=== PATIENT | male | born 1975 | race Caucasian/White ===

== ENCOUNTER → 2017-05-17 14:50 | Outpatient (CLI) | payer OTHER, SELFPAY ==
--- NOTE | 2017-05-17 14:52 | RAD_ITS ---
STUDY: X-RAY - RIGHT SHOULDER REASON FOR EXAM: Male, 41 years old. Right shoulder pain for 3 weeks. No known injury. TECHNIQUE: 3 view(s) of the shoulder. COMPARISON: None. FINDINGS: Normal glenohumeral articulation. There is mild arthrosis of the acromioclavicular joint. Normal acromion. Normal humeral head and visualized proximal humerus. The soft tissue structures are unremarkable. Normal visualized pulmonary apex. RAD/Shoulder min 2 Views IMPRESSION: Mild arthrosis of the acromioclavicular joint. Electronically Signed: Erik Cabral MD at 16:08 EST , Service support ,
== END ==
PROVIDERS: Visit Provider Orthopaedic Surgery
DX: M25.511 Pain in right shoulder (principal)
CPT/HCPCS: 73030

== ENCOUNTER 2021-06-08 08:32 | Emergency (ER) | payer OTHER, SELFPAY ==
[2021-06-08 08:33] VITALS: BP 136/98; PULSE 74; RESP 14; TEMP 36.6; O2SAT 99; BMI 33.1
--- NOTE | 2021-06-08 09:14 | EDS_ITS ---
HPI History of Present Illness Chief Complaint: Constipation Narrative Narrative: Patient presents with abdominal pain for about 6 days, he thought it was his diverticulitis and finally yesterday he started Augmentin, however he also noticed that he has not had a bowel movement for about 4 days. No fever or chills. He does not have current rectal pain or urinary symptoms or testicular pain. He has no flank pain. He has not had any nausea or vomiting. He does have chronic recurrent diverticulitis history PFSH PFS Medical History Diverticulitis Psoriasis Home Medications amoxicillin-pot clavulanate 1 tab PO BID 06/08/21 [History Last Taken Unknown] metoprolol succinate 25 mg PO DAILY 06/08/21 [History Last Taken Unknown] polyethylene glycol 3350 [Miralax] 17 g PO BID #119 g 06/08/21 [Rx Last Taken Unknown] rosuvastatin 10 mg PO DAILY 06/08/21 [History Last Taken Unknown] Allergy/AdvReac Type Severity Reaction Status Date / Time No Known Allergies Allergy Verified 06/08/21 08:35 Social History Smoking Status: Never smoker ROS ROS ED ROS Narrative Past medical history: Reviewed, includes hypertension, hypercholesterolemia, history of diverticulitis Medications: Reviewed Social history: Noncontributory Review of systems: All systems negative except as indicated General: No fever Eyes: No visual changes ENT: No upper airway congestion, normal voice Neck: No neck pain Cardiovascular: No chest pain Respiratory: No shortness of breath or cough Gastrointestinal: As in HPI Genitourinary: No dysuria Musculoskeletal: Denies myalgias no difficulty with ambulation Skin: No rash Neurological: No memory loss, confusion or any focal weakness Psych: No recent behavioral changes Hematologic: No easy bleeding or easy bruising EXAM Physical Exam Narrative Exam Narrative: Physical exam General: Well nourished, Well developed, No Acute Distress. He appears relatively comfortable. Head: Normocephalic, Atraumatic Eyes: Conjunctiva not pale ENT: Moist mucous membranes Neck: Supple, Nontender, No lymphadenopathy Cardiovascular: Regular rate, Regular rhythm Respiratory: No distress, CTA bilaterally Abdomen: Soft, there is tenderness throughout the abdomen however most of the tenderness is in the left lower quadrant. There is no guarding or rebound. No CVA tenderness. Back: Nontender, Normal Inspection. Negative for: CVA tenderness Extremities: Nontender, No edema Skin: Normal color, No rash Neurological: Alert, Normal Strength, Normal Sensation Psychological: Normal affect Const Vital Signs: 06/08/21 08:33 Temperature 97.8 F Temperature Source Temporal Pulse Rate 74 Respiratory Rate 14 Blood Pressure 136/98 H Blood Pressure Mean 110 Pulse Ox 99 Oxygen Delivery Method Room Air MDM MDM MDM Narrative Medical decision making narrative: Patient is found to have acute diverticulitis, it is uncomplicated with a normal white count. I will start the patient on IV antibiotics in the ED and discharged home with oral antibiotics, he does have a prescription for oral antibiotics which she started yesterday. He is to continue those this is reasonable. He also has some constipation which I will treat. Otherwise I believe he can be safely discharged if he has fever or chills he is to return Lab Data Labs: Laboratory Results - last 24 hr 06/08/21 06/08/21 09:20 09:20 WBC 8.2 RBC 5.50 Hgb 15.7 Hct 47.1 MCV 85.6 MCH 28.5 MCHC 33.3 RDW Std Deviation 40.9 RDW Coeff of Eleonora 12.9 Plt Count 243 MPV 10.8 Immature Gran % (Auto) 0.200 Neut % (Auto) 71.1 H Lymph % (Auto) 17.4 L [place] % (Auto) 8.0 Eos % (Auto) 2.8 Baso % (Auto) 0.5 Absolute Neuts (auto) 5.8 Absolute Lymphs (auto) 1.42 Nucleated RBC % 0 Sodium 138 Potassium 3.8 Chloride 104 Carbon Dioxide 31.0 Anion Gap 3 L BUN 10 Creatinine 1.05 Estim Creat Clear Calc 84.81 Est GFR (MDRD) Af Amer 99 Est GFR (MDRD) Non-Af 82 BUN/Creatinine Ratio 9.5 L Glucose 101 Calcium 9.5 Total Bilirubin 0.70 AST 22 ALT 47 Alkaline Phosphatase 68 Total Protein 7.7 Albumin 3.3 Globulin 4.4 H Albumin/Globulin Ratio 0.8 L Lipase 78 Radiography Diagnostic Testing: Clinical Impression(s) from Imaging Studies Abdomen/Pelvis CT 06/08/21 09:50 IMPRESSION: Acute sigmoid diverticulitis without evidence of abscess or perforation. Individualized dose optimization techniques were used for this CT. at 1016 Reported and signed by: Rex Rangel MD Electronically Signed: Rex Rangel MD at 10:15 EDT , Discharge Plan Triage Chief Complaint: Constipation Other Complaint: Abd Pain ED Provider: Branden Campos Dx/Rx/DC Orders Clinical Impression: Diverticulitis, Constipation Instructions: ED Diverticulitis Prescriptions: New polyethylene glycol 3350 [Miralax] 17 gram/dose powder 17 g PO BID Qty: 119 RF: 0 No Action metoprolol succinate 25 mg tablet extended release 24 hr 25 mg PO DAILY RF: 0 rosuvastatin 10 mg tablet 10 mg PO DAILY RF: 0 amoxicillin-pot clavulanate 875-125 mg tablet 1 tab PO BID RF: 0 Primary Care Provider: Yenni Crockett Referrals: Yenni Crockett PA-C [Primary Care Provider] - 2 Days Disposition Disposition: Home, Self Care
[2021-06-08 09:31] LABS: Absolute Lymphocyte Count 1.42 X10^3/uL (0.83-4.51); Absolute Neutrophil Count 5.8 X10^3/uL (2.0-7.7); Basophil# 0.04 X10^3/uL; Basophil% 0.5 % (0-1); Eosinophil# 0.23 X10^3/uL; Eosinophils% 2.8 % (0-5); Hematocrit 47.1 % (40-54); Hemoglobin 15.7 g/dL (13.0-16.5); Lymphocyte # 1.42 X10^3/ul (0.83-4.51); Lymphocyte % 17.4 % (19-41); Mean Corp Hgb Conc 33.3 g/dL (32-36); Mean Corpuscular Hgb 28.5 pg (27.0-32.0); Mean Corpuscular Volume 85.6 fL (80-94); Mean Platelet Vol. 10.8 fl (6.2-12.0); Monocyte# 0.65 X10^3/uL; NRBC Flagged by Analyzer 0 % (0-5); Neutrophil # 5.79 X10^3/uL (2.7-7.7); Neutrophil % 71.1 % (47-70); Platelet Count 243 K/mm3 (150-450); RBC Distribution Width CV 12.9 % (11.6-14.6); RBC Distribution Width SD 40.9 fl (35.1-43.9); White Blood Count 8.2 K/mm3 (4.4-11.0)
[2021-06-08 09:47] LABS: ALB/GLOB Ratio 0.8 RATIO (0.9-2.4); AST(SGOT) 22 U/L (15-37); Alanine Aminotransfer ALT/SGPT 47 U/L (16-61); Albumin, Serum 3.3 g/dL (3.2-5.0); Alkaline Phosphatase 68 U/L (45-117); Anion Gap 3 (5-15); BUN 10 mg/dL (7-18); BUN/Creat Ratio 9.5 RATIO (10-20); Calcium,Total 9.5 mg/dL (8.5-10.1); Chloride 104 mmol/L (98-107); Creatinine, Serum 1.05 mg/dL (0.70-1.30); EST Glomerular Filtration Rate 82 mL/min (>60); Est Glom Filt Rate - Afr Amer 99 mL/min (>60); Estimated Creatinine Clearance 84.81 ml/min; Globulin 4.4 g/dL (2.2-4.2); Glucose 101 mg/dL (74-106); Lipase 78 U/L (73-393); Potassium 3.8 mmol/L (3.5-5.1); Protein, Total 7.7 g/dL (6.4-8.2); Sodium Level 138 mmol/L (136-145)
--- NOTE | 2021-06-08 09:50 | CT_ITS ---
EXAM: CT ABDOMEN AND PELVIS WITHOUT INTRAVENOUS CONTRAST : 1975 CLINICAL INDICATION: abdominal pain TECHNIQUE: Helically acquired images were obtained of the abdomen and pelvis without intravenous contrast. This CT exam was performed using one or more of the following dose reduction techniques: automated exposure control, adjustment of the mA and/or kV according to patient size, and/or use of iterative reconstruction technique. This report was created using [employer] report generation technology. COMPARISON: None. FINDINGS: LOWER THORAX: Unremarkable. Lung bases are clear. No cardiomegaly. No significant pericardial effusion. ABDOMEN: LIVER: Unremarkable. Homogeneous. GALLBLADDER AND BILE DUCTS: Unremarkable. No calcified gallstones. No gallbladder distention or wall edema. No intra- or extrahepatic biliary ductal dilation. PANCREAS: Unremarkable. No focal cystic mass. SPLEEN: Unremarkable. Normal size without focal cystic or solid mass. ADRENALS: Unremarkable. No nodules. KIDNEYS AND URETERS: Unremarkable. Normal renal size and position. No hydronephrosis. STOMACH AND BOWEL: Localized wall thickening of the sigmoid colon noted associated with adjacent mesenteric edema consistent with acute sigmoid diverticulitis. No evidence of abscess or perforation. No stomach or bowel distention. PELVIS: APPENDIX: Appendix is visualised and normal in appearance. BLADDER: Unremarkable. REPRODUCTIVE: Unremarkable as visualized. No mass. ABDOMEN and PELVIS: INTRAPERITONEAL SPACE: Unremarkable. No ascites or other fluid collection. No free air. BONES/JOINTS: Unremarkable. No suspicious lytic or blastic abnormality. SOFT TISSUES: Unremarkable. No discrete abdominal or pelvic wall hernia. VASCULATURE: Unremarkable. Abdominal aorta is non-dilated. LYMPH NODES: Unremarkable. No enlarged lymph nodes. CT/Abdomen/Pelvis without Cont IMPRESSION: Acute sigmoid diverticulitis without evidence of abscess or perforation. Individualized dose optimization techniques were used for this CT. at 1016 Reported and signed by: Rex Rangel MD Electronically Signed: Rex Rangel MD at 10:15 EDT ,
[2021-06-08] MEDS: Ciprofloxacin 400 MG/200 ML BAG 200 MG IV (10:41)
[2021-06-08] MEDS: metroNIDAZOLE 500 MG/100 ML BAG 100 MG IV (12:07)
== END 2021-06-08 13:09 | disposition home or self-care (01) ==
PROVIDERS: Emergency Provider Emergency Medicine; PCP Family Medicine; Visit Provider Emergency Medicine
DX: K57.32 Diverticulitis of large intestine without perforation or abscess without bleeding (principal); E78.00 Pure hypercholesterolemia, unspecified; I10 Essential (primary) hypertension; L40.9 Psoriasis, unspecified; Z79.899 Other long term (current) drug therapy; Z87.19 Personal history of other diseases of the digestive system
CPT/HCPCS: 74176; 80053; 83690; 85025; 96365; 96366; 96367; 99283; J7050; A4216; J0744

== ENCOUNTER → 2021-08-16 | Outpatient (CLI) | payer OTHER, SELFPAY ==
[2021-08-16 17:13] LABS: Absolute Lymphocyte Count 1.95 X10^3/uL (0.83-4.51); Absolute Neutrophil Count 3.4 X10^3/uL (2.0-7.7); Basophil# 0.05 X10^3/uL; Basophil% 0.8 % (0-1); Eosinophil# 0.37 X10^3/uL; Eosinophils% 5.9 % (0-5); Hematocrit 48.2 % (40-54); Hemoglobin 15.5 g/dL (13.0-16.5); Lymphocyte # 1.95 X10^3/ul (0.83-4.51); Lymphocyte % 31.2 % (19-41); Mean Corp Hgb Conc 32.2 g/dL (32-36); Mean Corpuscular Hgb 27.9 pg (27.0-32.0); Mean Corpuscular Volume 86.8 fL (80-94); Mean Platelet Vol. 10.8 fl (6.2-12.0); Monocyte# 0.45 X10^3/uL; Monocyte% 7.2 % (0-10); NRBC Flagged by Analyzer 0 % (0-5); Neutrophil # 3.42 X10^3/uL (2.7-7.7); Neutrophil % 54.6 % (47-70); Platelet Count 247 K/mm3 (150-450); RBC Distribution Width SD 45.1 fl (35.1-43.9); Red Blood Count 5.55 M/mm3 (4.6-6.2); White Blood Count 6.3 K/mm3 (4.4-11.0)
[2021-08-16 17:17] LABS: POSITIVE COUNT NO; POSITIVE DIFFERENTIAL NO; POSITIVE MORPHOLOGY NO
[2021-08-16 17:22] LABS: Erythrocyte Sedimentation Rate 11 mm/hr (0-20)
[2021-08-16 20:30] LABS: AST(SGOT) 16 U/L (15-37); Alanine Aminotransfer ALT/SGPT 30 U/L (16-61); Albumin, Serum 3.9 g/dL (3.2-5.0); Alkaline Phosphatase 53 U/L (45-117); Anion Gap 7 (5-15); BUN 11 mg/dL (7-18); CRP < 2.90 mg/L (0.0-3.0); Chloride 103 mmol/L (98-107); EST Glomerular Filtration Rate 86 mL/min (>60); Est Glom Filt Rate - Afr Amer 104 mL/min (>60); Globulin 4.1 g/dL (2.2-4.2); Glucose 94 mg/dL (74-106); Potassium 3.2 mmol/L (3.5-5.1); Sodium Level 138 mmol/L (136-145)
[2021-08-18 14:11] LABS: Anti-Centromere B Ab <0.2 AI (0.0-0.9); Anti-Chromatin <0.2 AI (0.0-0.9); Anti-Jo <0.2 AI (0.0-0.9); Anti-Scleroderma-70 AB <0.2 AI (0.0-0.9); RNP Ab <0.2 AI (0.0-0.9); SJOGREN'S Anti-SS-A test < 0.2 AI (0.0-0.9); SJOGREN'S Anti-SS-B test < 0.2 AI (0.0-0.9); Smith Ab <0.2 AI (0.0-0.9)
[2021-08-18 15:19] LABS: Anti-dsDNA Ab 1 IU/mL (0-9)
[2021-08-18 17:07] LABS: Endomysial Antibody IgA Negative (Negative)
[2021-08-18 18:21] LABS: Immunoglobulin A 323 mg/dL (90-386); t-Transglutaminase IgA <2 U/mL (0-3)
== END | disposition home or self-care (01) ==
LOC: LAB 17:00
PROVIDERS: PCP Family Medicine; Referring Provider Nurse Practitioner Adult Health; Visit Provider Nurse Practitioner Adult Health
DX: K57.90 Diverticulosis of intestine, part unspecified, without perforation or abscess without bleeding (principal)
CPT/HCPCS: 36415; 80053; 82784; 83516; 85025; 85652; 86140; 86225; 86235; 86255

== ENCOUNTER → 2021-08-18 | Outpatient (CLI) | payer OTHER, SELFPAY ==
[2021-08-22 16:47] LABS: Calprotectin, Stool 34 ug/g (0-120)
== END | disposition home or self-care (01) ==
LOC: LABSPEC 08:16
PROVIDERS: PCP Family Medicine; Visit Provider Nurse Practitioner Adult Health
DX: K57.90 Diverticulosis of intestine, part unspecified, without perforation or abscess without bleeding (principal); K58.9 Irritable bowel syndrome, unspecified
CPT/HCPCS: 83630; 83993

== ENCOUNTER 2021-11-15 12:30 | Day surgery (SDC) | payer OTHER, SELFPAY ==
[2021-11-15] MEDS: Lactated Ringers 1,000 ML 15 ML IV (12:45)
[2021-11-15 12:54] VITALS: BP 104/74; PULSE 52; RESP 16; TEMP 36.1; O2SAT 99; BMI 32.2
--- NOTE | 2021-11-15 13:45 | EGD_PTH ---
PATIENT: KWAKU JACOBSEN LOC: EN U#:[id number] AGE/SX: 46/M ROOM: RE11/15/[address]: Dr. Germán Resendiz DO : 1975 BED: DIS: 11/15/2021 SPEC #: [id number] RECD: 11/15/21 16:49 STATUS: ARIK AKIRA #: [id number] BARBARA: 11/15/21 13:[address]: Germán Resendiz DEPT: SURGICAL PATHOLOGY RECD BY: Judith Farley ENTERED: 11/16/21 11:13 SP TYPE: EGD BIOPSY OT DR: Yenni Crockett PA-C Tissues: A - Gastric mucous membrane B - Esophagus, NOS C - Ileum, NOS D - Sigmoid colon biopsy Procedures: Special Stain Group II Surgery Specimen Level IV Alcian Blue/PAS (control) HEADER OPERATION: Colonoscopy, [place] [place] PRE-OP DIAGNOSIS: Diverticular disease TISSUE SUBMITTED: A ? Gastric body biopsy, B ? Distal esophagus biopsy, C ? Terminal ileum biopsy, D ? Sigmoid colon biopsy MICROSCOPIC DIAGNOSIS A. Gastric body, biopsy: Mild gastritis. See microscopic description and comment. B. Distal esophagus, biopsy: Fragments of gastroesophageal mucosa with chronic inflammation. Intestinal metaplasia (goblet cell metaplasia) not identified. See comment. C. Terminal ileum, biopsy: Fragments of small intestinal mucosa, no pathologic diagnosis. D. Sigmoid colon, biopsy: Focal acute colitis. See comment. SJ:kay 11/17/2021 COMMENT A. The results of immunohistochemistry for Helicobacter pylori will be reported separately ([id number]). B. Alcian blue/PAS stain with matched control is used in the evaluation of the specimen. D. Significant inflammation or glandular distortion is not seen. Correlation with clinical, endoscopic findings and appropriate follow up are necessary. MICROSCOPIC DESCRIPTION Slides are reviewed. A. The specimen shows fragments of gastric mucosa with chronic inflammatory cell infiltrates in the lamina propria consisting of lymphocytes and plasma cells, consistent with mild chronic gastritis. GROSS DESCRIPTION A - Received in fixative is one container labeled with the patient's name and designated gastric body biopsy. The specimen consists of two irregular fragments of light davila soft tissue that in aggregate measure 0.8 x 0.6 x 0.1 cm. The specimen is totally submitted in one cassette. B - Received in fixative is one container labeled with the patient's name and designated terminal ileum biopsy. The specimen consists of multiple irregular fragments of light davila soft tissue that in aggregate measure 1 x 0.5 x 0.1 cm. The specimen is totally submitted in one cassette. C - Received in fixative is one container labeled with the patient's name and designated terminal ileum. The specimen consists of multiple irregular fragments of light davila soft tissue that in aggregate measure 0.6 x 0.6 x 0.1 cm. The specimen is totally submitted in one cassette. D - Received in fixative is one container labeled with the patient's name and designated distal esophagus. The specimen consists of multiple irregular fragments of light davila soft tissue that in aggregate measure 0.8 x 0.3 x 0.1 cm. The specimen is totally submitted in one cassette. / AM:kay 11/16/2021 TC:2 CPT: 54917 x4, 19198
--- NOTE | 2021-11-15 13:45 | IMM_PTH ---
PATIENT: KWAKU JACOBSEN LOC: EN U#:[id number] AGE/SX: 46/M ROOM: RE11/15/[address]: Dr. Germán Resendiz DO : 1975 BED: DIS: 11/15/2021 SPEC #: [id number] RECD: 11/16/21 12:30 STATUS: ARIK REMerrill #: [id number] BARBARA: 11/15/21 13:[address]: Germán Resendiz DEPT: IMMUNOHISTOCHEMISTRY RECD BY: Nellie Porras ENTERED: 11/16/21 12:31 SP TYPE: IMMUNO OT DR: Yenni Crockett PA-C Tissues: A - Stomach, NOS Procedures: H Pylori (initial) PHYSICIAN & INSTITUTION [place] [id number] SPECIMEN INFORMATION: Tissue Source: A ? Gastric body biopsy Clinical Info: Diverticular disease Specimen Number: [id number] CPT code: 69699 METHODOLOGY: Deparaffinized sections of prefer/formalin-fixed tissue or PAP/DQ stained slides are incubated with monoclonal/polyclonal antibodies/oligonucleotide probes. Localization is made via biotin free immunoperoxidase method. Appropriate controls are performed and reacted as expected. Results on target cell population are indicated in the following table: RESULTS: ANTIBODY / CLONE RESULT Block A H Pylori (polyclonal) negative These tests were developed and their performance characteristics determined by [facility]. They may not have been cleared or approved by the U.S. Food and Drug Administration. The FDA has determined that such clearance or approval is not necessary. The above immunohistochemical/dualISH markers are ordered and reviewed by the Pathologist. INTERPRETATION: A. Gastric body, biopsy: Negative for Helicobacter pylori organisms. SJ:kay 11/17/2021
--- NOTE | 2021-11-15 13:58 | PCM.HP.BLA ---
History and Physical Date of Admission: 11/15/21 KWAKU JACOBSEN, is a 46 M who presents to the office today for diverticular disease.? He is accompanied by his .? He was first diagnosed with diverticular disease approximately 10 years ago.? He had up to 3 bouts of diverticulitis annually until he started taking a daily probiotic.? When he backs off on taking the daily probiotic that is when he tends to get a flare of diverticulitis.? Most recent bout was in May of this year, that was the only time he has presented to the ED for diverticulitis.? He was treated with IV antibiotic and then discharged on Augmentin.? He was constipated at that time which is very unusual for him.? He normally has regular daily bowel movements, can sometimes have loose stools, really never constipated other than once this year. History of a hemorrhoid that has bled.? He has never had melena.? Has psoriasis plaque at anus, that can itch and bleed, so can be difficult to tell if psoriasis or hemorrhoid. Has rx for suppository for hemorrhoids. Frequent gas pains since childhood. With flare of diverticulitis pain is at the LLQ then across lower abdomen.? He does often have a mild discomfort in the left lower quadrant especially with palpation.Father had significant diverticular disease, including fistula to bladder. Occas heartburn, takes omeprazole prn.? No prior upper endoscopy. 06/08/21 CT Localized wall thickening of the sigmoid colon noted associated with adjacent mesenteric edema consistent with acute sigmoid diverticulitis. No evidence of abscess or perforation. No stomach or bowel distention. Past medical history includes palpitations for which she previously took metoprolol, psoriasis, hemorrhoid, diverticulitis, hyperlipidemia, obesity. 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[employer]) Constitutional: No fatigue ENT ENT: No difficulty swallowing Gastro GI: Positive for abdominal pain and nausea/dyspepsia; No belching, bloating, change in bowel habits, change in stool character, coffee ground emesis, constipation, cramping, diarrhea, heartburn, difficulty swallowing, feeling full early, excessive flatus, incontinent of stools, Vomiting blood/hematemesis, Blood in stool, loose stools, Black,tarry stools, pain with swallowing, vomiting or other Musc Musculoskeletal: Positive for back pain and stiffness; No joint pain Skin Skin: Positive for itchy eyes; No yellowing of the eye Psych Psychiatric: No anxiety and No depression Endo Endocrine: No fatigue Aller/Imm Allergy/Immunologic: Positive for itchy eyes Marcin/Lymp Hematologic/Lymphatic: No easy bleeding or easy bruising Exam Const General: cooperative, comfortable, well developed and well groomed Nutritional Appearance: overweight Eyes General: appearance normal, both eyes and all related structures Neck Neck: normal visual inspection Resp Effort & Inspection: normal respiratory effort GI Inspection: normal to inspection Palpation: soft, no hepatosplenomegaly, no masses and tender in the LLQ Skin General: no jaundice Neuro Gait: normal gait Quality Reporting Tobacco Screening ([facility] 138) Smoking Status: Never smoker Assessment and Plan Assessment and Plan (1) Diverticular disease: ?Status:?Acute ? ? ? Orders:?Orders: ? Comprehensive Metabolic Profil Today ? ? ? CRP Today ? ? ? CBC W/Diff, Automated Today ? ? ? Erythrocyte Sed Rate Today ? ? ? MARISABEL Comprehensive Panel Today ? ? ? Calprotectin, Stool Today ? ? ? Stool Lactoferrin/WBC Today ? ? ? Celiac Disease Profile Today ?Plan - Dania Ochoa NP, BILL RECAPITULATION CLERK-C: 46-year-old male with 10-year history of diverticular disease.? His father had fistulizing diverticular disease.? Will work-up patient to rule out IBD with inflammatory markers, stool inflammatory markers, and evaluate for other autoimmune disorder.? We will get him scheduled for both upper and lower endoscopy, need to rule out Sun's considering his history of heartburn.? We will give him an article on [facility].? Continue daily probiotic since that has proved to be very effective for him.? He does not have constipation so we do not need to address that.? Follow-up 2 weeks after endoscopy.? In the meantime I will contact him with results and any further work-up or treatment needed. Plan Details Other Medications: ?Discontinued: ? metoprolol succinate ER ?? Discontinued Reason:? Pt no longer taking 25 mg? PO DAILY ? ? ? amoxicillin-pot clavulanate 875-125 mg ?? Discontinued Reason:? Pt no longer taking 1 TAB? PO BID ? ? ? polyethylene glycol 3350 (Miralax) ?? Discontinued Reason:? Pt no longer taking 17 grams? PO BID 119 grams 0RF ? ? I have re-examined the patient. There are no clinical changes since date of exam.
--- NOTE | 2021-11-15 14:39 | OP.EGD_ITS ---
Patient Name: Chadwick Kyle Procedure Date: 11/15/2021 1:56 PM Date of : 1975 Age: 46 Procedure: Upper GI endoscopy Indications: Epigastric abdominal pain, Abdominal pain in the left lower quadrant Providers: Germán Resendiz DO Medicines: Monitored Anesthesia Care Patient Profile: This is a 46 year old male. Refer to note in patient chart for documentation of history and physical. Patient has symptoms of acute abdominal distention and chronic left lower quadrant abdominal pain. Complications: No immediate complications. Procedure: Pre-Anesthesia Assessment: - Prior to the procedure, a History and Physical was performed, and patient medications and allergies were reviewed. The risks and benefits of the procedure and the sedation options and risks were discussed with the patient. All questions were answered and informed consent was obtained. Patient identification and proposed procedure were verified by the physician in the pre-procedure area. Mental Status Examination: alert and oriented. Airway Examination: normal oropharyngeal airway and neck mobility. Respiratory Examination: clear to auscultation. CV Examination: normal. Prophylactic Antibiotics: The patient does not require prophylactic antibiotics. Prior Anticoagulants: The patient has taken no previous anticoagulant or antiplatelet agents. After reviewing the risks and benefits, the patient was deemed in satisfactory condition to undergo the procedure. The anesthesia plan was to use moderate sedation / analgesia (conscious sedation). Immediately prior to administration of medications, the patient was re-assessed for adequacy to receive sedatives. The heart rate, respiratory rate, oxygen saturations, blood pressure, adequacy of pulmonary ventilation, and response to care were monitored throughout the procedure. The physical status of the patient was re-assessed after the procedure. After obtaining informed consent, the endoscope was passed under direct vision. Throughout the procedure, the patient's blood pressure, pulse, and oxygen saturations were monitored continuously. The pediatric colonoscope was introduced through the mouth, and advanced to the second part of duodenum. The upper GI endoscopy was accomplished without difficulty. The patient tolerated the procedure well. Scope In: 2:09:32 PM Scope Out: 2:16:01 PM Total Procedure Duration Time 0 hours 6 minutes 29 seconds Findings: The Z-line was irregular and was found 38 cm from the incisors. Biopsies were taken with a cold forceps for histology. Verification of patient identification for the specimen was done. Estimated blood loss was minimal. The entire examined stomach was normal. Biopsies were taken with a cold forceps for histology. Verification of patient identification for the specimen was done. Estimated blood loss was minimal. The second portion of the duodenum was normal. Biopsies were taken with a cold forceps for histology. Verification of patient identification for the specimen was done. Estimated blood loss was minimal. Impression: - Z-line irregular, 38 cm from the incisors. Biopsied. - Normal stomach. Biopsied. - Normal second portion of the duodenum. Biopsied. Recommendation: - Discharge patient to home. - Resume previous diet. - Continue present medications. - Await pathology results. Procedure Code(s): --- Professional --- 22355, Esophagogastroduodenoscopy, flexible, transoral; with biopsy, single or multiple CPT copyright 2017 [employer]. All rights reserved. The codes documented in this report are preliminary and upon certified professional coder review may be revised to meet current compliance requirements. Germán Resendiz DO 11/15/2021 2:38:27 PM This report has been signed electronically. Number of Addenda: 1 Note Initiated On: 11/15/2021 1:56 PM Addendum Number: 1 Addendum Date: 12/29/2021 6:06:50 AM MAC was used as sedation for this procedure. Germán Resendiz DO 12/29/2021 6:06:53 AM This report has been signed electronically.
--- NOTE | 2021-11-15 14:39 | OP.CCLET_ITS ---
12/29/2021 [facility] Re : Upper GI endoscopy procedure for Chadwick Crockett This procedure was performed on Monday, November 15, 2021. My impressions and recommendations are as follows: Impressions : - Z-line irregular, 38 cm from the incisors. Biopsied. - Normal stomach. Biopsied. - Normal second portion of the duodenum. Biopsied. Recommendations : - Discharge patient to home. - Resume previous diet. - Continue present medications. - Await pathology results. My findings are described in the full procedure note, which is enclosed. If I can be of further assistance, please feel free to contact me at . Sincerely, Germán Resendiz, 11/15/2021 2:38:27 PM This report has been signed electronically.
[2021-11-15 14:40] VITALS: BP 104/74; BP 99/72; PULSE 61; RESP 16; TEMP 36.1; O2SAT 97
--- NOTE | 2021-11-15 14:42 | OP.CCLET_ITS ---
12/29/2021 [facility] Re : Colonoscopy procedure for Chadwick Crockett This procedure was performed on Monday, November 15, 2021. My impressions and recommendations are as follows: Impressions : - Localized mild inflammation was found in the sigmoid colon secondary to colitis. Biopsied. - Diverticulosis in the recto-sigmoid colon and in the sigmoid colon. - The examined portion of the ileum was normal. Biopsied. Recommendations : - Discharge patient to home. - Resume previous diet. - Continue present medications. - Await pathology results. - Repeat colonoscopy in 5 years. My findings are described in the full procedure note, which is enclosed. If I can be of further assistance, please feel free to contact me at . Sincerely, Germán Resendiz, 11/15/2021 2:41:23 PM This report has been signed electronically.
--- NOTE | 2021-11-15 14:42 | OP.COLON_ITS ---
Patient Name: Chadwick Kyle Procedure Date: 11/15/2021 2:16 PM Date of : 1975 Age: 46 Procedure: Colonoscopy Indications: Abdominal pain in the left lower quadrant, Abnormal CT of the GI tract Providers: Germán Resendiz DO Medicines: Monitored Anesthesia Care Patient Profile: This is a 46 year old male. Refer to note in patient chart for documentation of history and physical. Patient has symptoms of acute abdominal distention and chronic left lower quadrant abdominal pain. Last Colonoscopy: none. The patient's first colonoscopy is today. Complications: No immediate complications. Procedure: Pre-Anesthesia Assessment: - Prior to the procedure, a History and Physical was performed, and patient medications and allergies were reviewed. The risks and benefits of the procedure and the sedation options and risks were discussed with the patient. All questions were answered and informed consent was obtained. Patient identification and proposed procedure were verified by the physician in the pre-procedure area. Mental Status Examination: alert and oriented. Airway Examination: normal oropharyngeal airway and neck mobility. Respiratory Examination: clear to auscultation. CV Examination: normal. Prophylactic Antibiotics: The patient does not require prophylactic antibiotics. Prior Anticoagulants: The patient has taken no previous anticoagulant or antiplatelet agents. After reviewing the risks and benefits, the patient was deemed in satisfactory condition to undergo the procedure. The anesthesia plan was to use moderate sedation / analgesia (conscious sedation). Immediately prior to administration of medications, the patient was re-assessed for adequacy to receive sedatives. The heart rate, respiratory rate, oxygen saturations, blood pressure, adequacy of pulmonary ventilation, and response to care were monitored throughout the procedure. The physical status of the patient was re-assessed after the procedure. After I obtained informed consent, the scope was passed under direct vision. Throughout the procedure, the patient's blood pressure, pulse, and oxygen saturations were monitored continuously. The pediatric colonoscope was introduced through the anus and advanced to the terminal ileum. The colonoscopy was performed without difficulty. The patient tolerated the procedure well. The quality of the bowel preparation was good. Scope In: 2:18:23 PM Scope Withdrawal Time 0 hours 11 minutes 37 seconds Scope Out: 2:34:09 PM Total Procedure Duration Time 0 hours 15 minutes 46 seconds Findings: The perianal and digital rectal examinations were normal. Localized mild inflammation characterized by congestion (edema) and erythema was found in the sigmoid colon. Biopsies were taken with a cold forceps for histology. Verification of patient identification for the specimen was done. Estimated blood loss was minimal. A few small and large-mouthed diverticula were found in the recto-sigmoid colon and sigmoid colon. The terminal ileum appeared normal. Biopsies were taken with a cold forceps for histology. Verification of patient identification for the specimen was done. Estimated blood loss was minimal. Impression: - Localized mild inflammation was found in the sigmoid colon secondary to colitis. Biopsied. - Diverticulosis in the recto-sigmoid colon and in the sigmoid colon. - The examined portion of the ileum was normal. Biopsied. Recommendation: - Discharge patient to home. - Resume previous diet. - Continue present medications. - Await pathology results. - Repeat colonoscopy in 5 years. Procedure Code(s): --- Professional --- 85216, Colonoscopy, flexible; with biopsy, single or multiple CPT copyright 2017 [employer]. All rights reserved. The codes documented in this report are preliminary and upon inpatient coder review may be revised to meet current compliance requirements. Germán Resendiz DO 11/15/2021 2:41:23 PM This report has been signed electronically. Number of Addenda: 1 Note Initiated On: 11/15/2021 2:16 PM Addendum Number: 1 Addendum Date: 12/29/2021 6:07:02 AM MAC was used as sedation for this procedure. Germán Resendiz DO 12/29/2021 6:07:05 AM This report has been signed electronically.
[2021-11-15 14:45] VITALS: BP 104/74; BP 93/65; PULSE 64; RESP 16; O2SAT 97
[2021-11-15 14:50] VITALS: BP 104/74; BP 88/64; PULSE 50; RESP 16; O2SAT 97
[2021-11-15 14:55] VITALS: BP 104/74; BP 97/61; PULSE 49; RESP 16; TEMP 36.5; O2SAT 98
[2021-11-15 15:11] VITALS: BP 104/74
== END 2021-11-15 15:43 | disposition home or self-care (01) ==
LOC: EN 12:31 → AC 12:32
PROVIDERS: PCP Family Medicine; Referring Provider Family Medicine; Visit Provider Internal Medicine Gastroenterology
PROC: 0DJD8ZZ Inspection of Lower Intestinal Tract, Via Natural or Artificial Opening Endoscopic (ICD-10-PCS; CPT 45378; principal; 2021-11-15 13:40)
DX: K29.70 Gastritis, unspecified, without bleeding (principal); K52.9 Noninfective gastroenteritis and colitis, unspecified; K57.30 Diverticulosis of large intestine without perforation or abscess without bleeding; K21.00 Gastro-esophageal reflux disease with esophagitis, without bleeding
CPT/HCPCS: 45380; 43239; 88305; 88313; 88342; J7120

== ENCOUNTER → 2021-11-29 | Outpatient (CLI) | payer OTHER, SELFPAY | END | disposition home or self-care (01) | PROVIDERS: PCP Family Medicine; Referring Provider Nurse Practitioner Adult Health; Visit Provider Nurse Practitioner Adult Health | DX: K52.9 Noninfective gastroenteritis and colitis, unspecified (principal); K57.90 Diverticulosis of intestine, part unspecified, without perforation or abscess without bleeding | CPT/HCPCS: 36415 ==